=== PATIENT | male | born 2000 | race Hispanic/Latino ===

== ENCOUNTER 2025-02-04 20:10 | Inpatient (IN) | payer SELFPAY ==
[2025-02-04] VITALS (9 sets, daily range): BP systolic 115–138; BP diastolic 57–74; PULSE 67–78; RESP 16; TEMP 37.3; O2SAT 97–100; BMI 30.4
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
[2025-02-04 20:38] LABS: Add Manual Diff / Slide Review NO; Hematocrit 43.2 % (41-53); Hemoglobin 14.3 g/dL (13.5-17.5); Lymphocytes Absolute Auto 2500 /uL (1100-4500); Mean Corpuscular HGB Conc 33.1 % (30-36); Mean Corpuscular Hemoglobin 28.4 PG (26-34); Mean Corpuscular Volume 85.9 fL (80-100); Platelet Count 266 X10^3/uL (150-400)
[2025-02-04] MEDS: MORPHINE 4 MG/ML INJ IV ×2 (20:41→21:24)
[2025-02-04] MEDS: ONDANSETRON 4 MG/2 ML INJ IV (20:41)
[2025-02-04] MEDS: KETOROLAC 30 MG/ML VIAL IV (20:42)
[2025-02-04 20:43] LABS: Alanine Aminotransferase 34 IU/L (<50); Albumin 4.7 g/dL (3.5-5.0); Albumin Globulin Ratio 1.3 (1.0-2.8); Alkaline Phosphatase 71 U/L (38-126); Blood Urea Nitrogen 18 mg/dL (9-20); Calcium 8.8 mg/dL (8.4-10.2); Carbon Dioxide 27 mmol/L (22-32); Chloride 102 mmol/L (98-107); Estimated Glomerular Filt Rate > 60 mL/min (>60); Globulin 3.7 g/dL (1.7-4.1); Glucose 118 mg/dL (70-99); HEMOLYSIS 15 (0-50); Potassium 3.7 mmol/L (3.4-5.1); Sodium 141 mmol/L (137-145); Total Protein 8.4 g/dL (6.3-8.2)
--- NOTE | 2025-02-04 22:12 | DI.CT.S_ITS ---
PROCEDURE: CT LE RT WO CON INDICATIONS: Requested by ortho to assess fracture dislocation ankle TECHNIQUE: Noncontrast 3-mm axial sections acquired from the distal tibial shaft to the talar dome, with coronal and sagittal reformats. Dose modulation was performed. COMPARISON: [facility], CR, XR ANKLE RT 2V, 02/04/2025, 20:24. FINDINGS: Image quality: Excellent. Bones: Fracture of the distal fibula above the syndesmosis. Minimally comminuted. Displaced. Posterior malleolus comminuted fracture. Displaced. Medial malleolus fracture. Displaced. Talus is displaced posterior laterally in relation to the tibia. Ankle mortise is malaligned. Small fracture fragments at the tibiotalar joint. Findings in keeping with open fracture with small foci of gas. Suspect medial malleolus at the skin. Soft tissues: Soft tissue swelling most pronounced at the medial malleolus. Soft tissue gas as described above. IMPRESSION: Open fracture dislocation at the right ankle. Dictated by: Bryan Mccormack M.D. on 02/04/2025 at 23:23 Approved by: Bryan Mccormack M.D. on 02/04/2025 at 23:30
--- NOTE | 2025-02-04 22:40 | DI.RAD.S_ITS ---
PROCEDURE: XR ANKLE RT MIN 3V INDICATIONS: Post reduction TECHNIQUE: 3 views of the ankle were acquired. COMPARISON: [facility], CT, CT LE RT WO CON, 02/04/2025, 22:18. [facility], CR, XR ANKLE RT 2V, 02/04/2025, 20:24. FINDINGS: Bones: Casting material obscures fine bony detail. Distal fibular shaft fracture. Medial malleolus fracture. Posterior malleolus fracture. Tibiotalar joint is reduced. There is improved alignment of the ankle mortise. No suspicious bony lesions. Soft tissues: No tibiotalar joint effusion. Achilles tendon appears normal. IMPRESSION: Tibiotalar joint is reduced. Improved alignment of the ankle mortise. Distal fibula, medial malleolus, and posterior malleolus fractures. Dictated by: Bryan Mccormack M.D. on 02/05/2025 at 2:13 Approved by: Bryan Mccormack M.D. on 02/05/2025 at 2:15
[2025-02-04] MEDS: TET,DIPH,PERTUSS(ACELL),VAC/PF 0.5 ML SYRINGE IM (23:15)
[2025-02-05] VITALS (30 sets, daily range): BP systolic 115–131; BP diastolic 54–71; PULSE 61–99; RESP 7–18; TEMP 36.2–36.9; O2SAT 94–100; BMI 30.4
--- NOTE | 2025-02-05 | DI.RAD.S_ITS ---
PROCEDURE: XR ANKLE RT 2V INDICATIONS: ORIF Ankle TECHNIQUE: 3 views of the ankle were acquired. COMPARISON: [facility], CR, XR ANKLE RT MIN 3V, 02/05/2025, 0:09. [facility], CR, XR ANKLE RT 2V, 02/04/2025, 20:24. FINDINGS: Status post screw fixation medial malleolus fracture with anatomic alignment. Status post plate screw fixation of distal fibula diaphysis fracture with anatomic alignment. Posterior malleolus fracture with improved alignment but persistent displacement. Tibiotalar joint is congruent. IMPRESSION: As above Dictated by: Momo Lynn M.D. on 02/05/2025 at 15:18 Approved by: Momo Lynn M.D. on 02/05/2025 at 15:20
--- NOTE | 2025-02-05 | DI.RAD.S_ITS ---
PROCEDURE: XR ANKLE RT MIN 3V INDICATIONS: post-op ORIF TECHNIQUE: 3 views of the ankle were acquired. COMPARISON: [facility], CR, XR ANKLE RT 2V, 02/05/2025, 12:59. [facility], CR, XR ANKLE RT MIN 3V, 02/05/2025, 0:09. [facility], CT, CT LE RT WO CON, 02/04/2025, 22:18. [facility], CR, XR ANKLE RT 2V, 02/04/2025, 20:24. FINDINGS: Bones: There is plate and screw fixation seen of the distal fibula. Two screws are seen through the medial malleolus. No postoperative complication can be seen. The fractures are better aligned than on the priors. A posterior malleolar fracture can also be seen. Soft tissues: Soft tissue postoperative changes are seen. Not well seen, obscured by overlying bowel gas. IMPRESSION: Normal postoperative examination. Dictated by: Earnets Mcallister M.D. on 02/05/2025 at 14:26 Approved by: Earnest Mcallister M.D. on 02/05/2025 at 14:27
--- NOTE | 2025-02-05 00:23 | PC.NURSE ---
R LE dressing saturated with blood. Dressing removed-- wound actively oozing blood. Dr Angel called to bedside; pressure dressing applied. Dr Angel reduced fx and ortho glass splint applied. +CSM after application. Post reduction XR's done.
[2025-02-05] MEDS: LACTATED RINGERS 1,000 ML 100 ML IV (01:31)
[2025-02-05 02:50] LABS: MRSA (Nasal) PCR NOT DETECTED (Not Detect)
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
[2025-02-05 05:25] LABS: Add Manual Diff / Slide Review NO; Hematocrit 40.1 % (41-53); Hemoglobin 13.4 g/dL (13.5-17.5); Lymphocytes Absolute Auto 2000 /uL (1100-4500); Mean Corpuscular HGB Conc 33.5 % (30-36); Mean Corpuscular Hemoglobin 28.9 PG (26-34); Mean Corpuscular Volume 86.1 fL (80-100); Platelet Count 231 X10^3/uL (150-400)
[2025-02-05 05:38] LABS: Blood Urea Nitrogen 18 mg/dL (9-20); Calcium 8.9 mg/dL (8.4-10.2); Carbon Dioxide 26 mmol/L (22-32); Chloride 106 mmol/L (98-107); Estimated Glomerular Filt Rate > 60 mL/min (>60); Glucose 108 mg/dL (70-99); HEMOLYSIS < 15 (0-50); Potassium 4.4 mmol/L (3.4-5.1); Sodium 140 mmol/L (137-145)
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
[2025-02-05] MEDS: LACTATED RINGERS 1,000 ML 42 ML IV (10:39)
[2025-02-05] MEDS: ACETAMINOPHEN 325 MG TABLET 975 MG PO (10:44)
--- NOTE | 2025-02-05 12:30 | SUR.OPER ---
Supine on padded OR bed, head on pillow, arms secured on padded arm boards at <90 degrees abduction, legs uncrossed, safety belt at thigh, tape over blanket over lower left leg, right leg prepped into field
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
[2025-02-05] MEDS: KETOROLAC 30 MG/ML VIAL IV (15:28)
--- NOTE | 2025-02-05 15:33 | P.OP_ITS ---
Operative Date/Time/Diagnoses Date of procedure: 02/05/25 Time of procedure: 12:00 Pre-op diagnosis: Unstable Left Trimalleolar ankle fracture Post-op diagnosis: same Procedure & Clinicians Procedure: ORIF of the RIGHT ankle fracture Same procedure(s) as scheduled: Yes Surgeon: Davin Mg Assisted?: Yes Financial Analyst: Eboni Rodriguez Anesthesia Type: General Operative Notes Findings: unstable open ankle fracture Closure Type: primary Specimen(s): none sent Applied: other Estimated Blood Loss (mL): 25 Blood products transfused: none Tourniquet time (min): 125 Procedure in detail: Laterality: Right Preoperative diagnosis: Open, Unstable right trimalleolar ankle fracture Procedure performed: Open Reduction Internal Fixation of Ankle Fracture, irrigation and debridement of the right ankle Postoperative diagnosis: Same Primary Surgeon: Davin Mg MD Secondary Surgeon: Eboni GARCIA Physician Financial Analyst was used throughout the entirety of the case. ?This operation could not have been safely performed (without compromising the technical results or length of the procedure) without the assistance of a skilled certified surgical assistant. A certified surgical assistant was medically necessary for room set up, patient positioning, draping, retraction, visualization, reduction, fixation and closure. ?They were essential ?for the success of the case. Anesthesia: General EBL: 25 ml Tourniquet: 125 minutes @ 250 mmHg Implants: [employer]berg [employer] screws and plates; 2 cannulated screws; 8 hole plate with lag screw Indication For Surgery: The patient sustained an unstable ankle fracture which required surgery to restore stability and anatomic length, alignment, and rotation. The risks, benefits, and alternatives were discussed. Risks include pain, bleeding, infection, damage to nearby structures and cartilage, lack of symptom relief, malunion, nonunion, implant complications with need for removal, need for further surgery, DVT, PE, stroke, and . Written consent was obtained. Examination Under Anesthesia: An unstable ankle Operative Findings: 7 cm laceration over the medial malleolus. Extremely unstable ankle fracture. Procedure in Detail: The patient was met in the pre-operative hold area. Consent was verified and operative extremity was signed. The patient then met with anesthesia and was brought back to the operating room. The patient was placed supine on the operating table. A general anesthetic was administered. The extremity was then prepped and draped in the usual sterile fashion. A timeout was performed per protocol. All were in agreement and we proceeded. We started on the medial aspect of the ankle. The wound was extended distally to expose the ankle joint and the fracture site. The wound was debrided of all nonviable tissue. It was irrigated with 9 L of sterile normal saline. The soft tissues were debrided and fracture sites exposed. On examination of the tibial plafond there was no obvious damage to the cartilage. All instruments were laid off to the side on a dirty table and then we proceeded with the rest of the procedure with sterile table. The medial malleolus was reduced with a adduction force. We also utilized a dental pick and [id number] reduction clamps to bring the medial malleolus into a near anatomic position. This was then examined under fluoroscopy in AP and lateral positions. Happy with this reduction we then placed 2 parallel K- wires. Those K-wires were measured and we over-reamed for 2 partially-threaded cancellous screws. Our reduction and screw placement was confirmed in AP and lateral radiographs. A direct lateral approach to the lateral malleolus was made. Sharp dissection was carried out distally and scissor dissection proximally. The superficial peroneal nerve was sought out but not seen during the case. The fracture site was identified and 2mm of periosteum was freed to allow for an adequate assessment of fracture reduction. Hematoma and blocks to reduction were removed from the fracture site. The fracture site was irrigated. A reduction was performed and held with a point to point clamp. A 2.7mm lag screw was placed perpendicular, compressing the fracture site nicely. A 1/3 tubular plate was placed laterally and the position was confirmed with fluoroscopy. The plate was cheated slightly posteriorly to allow for the appropriate trajectory in the case syndesmosis fixation was needed. The plate was secured with screws proximally and distally. The reduction was maintained throughout. The syndesmosis was then examined with both external rotational stress and hook test. Both of these showed no instability. Final images were taken. The wound was closed in a layered fashion with 0- vicryl in the deep tissues, covering the plate, 2-0 in the dermis, and running nylon in the skin. Local anesthetic was placed. A sterile dressing and splint were applied. The patient was awakened and transferred to the recovery room. Postoperative Plan: Same day surgery discharge NWB with splint for 2 weeks Follow up in 1 week for wound check Davin Mg MD Complications: none Post-operative Condition: stable Disposition: PACU
--- NOTE | 2025-02-05 18:19 | PC.NURSE ---
Pt went down to OR to fix R ankle. Back up on floor after PACU. Pain in control, IV antibiotic given. DC'ed home with grandfather. Discharge paperwork reviewed and all questions answered. Crutches obtained and reviewed with patient.
== END 2025-02-05 17:42 | disposition home or self-care (01) | DRG 494 ==
LOC: ED 20:20 → AC 22:51 → ICU 02-05 00:59
PROVIDERS: Orthopaedic Surgery; Admitting Provider Internal Medicine; Emergency Provider Emergency Medicine; Referring Provider Emergency Medicine; Visit Provider Internal Medicine
PROC: 0SSF04Z Reposition Right Ankle Joint with Internal Fixation Device, Open Approach (ICD-10-PCS; principal; 2025-02-05 10:45)
DX: S82.851B Displaced trimalleolar fracture of right lower leg, initial encounter for open fracture type I or II (principal); V00.841A Fall from standing electric scooter, initial encounter; Y93.I9 Activity, other involving external motion; Z23 Encounter for immunization
CPT/HCPCS: 27810; 27822; 29515; 36415; 73600; 73610; 73700; 76000; 80048; 80053; 85025; 87797; 90471; 96365; 96375; 96376; 99222; 99284; 90715; C1713; J0687; J0689; J1100; J1171; J1885; J2250; J2272; J2405; J2704; J3010; J3490; J7050; J7120